=== PATIENT | female | born 1955 | race Caucasian/White ===

== ENCOUNTER → 2024-07-18 08:04 | Outpatient (REF) | payer MEDICARE, SELFPAY | LOC: HWWDC 08:04 | PROVIDERS: ATTENDING PHYSICIAN Physician Assistant Medical | DX: Z12.31 Encounter for screening mammogram for malignant neoplasm of breast (principal) | CPT/HCPCS: 77063; 77067 ==

== ENCOUNTER 2024-08-30 07:53 | Inpatient (IN) | payer MEDICARE, SELFPAY ==
[2024-08-16 14:08] VITALS: BMI 29.6
[2024-08-16 14:21] LABS: Hematocrit 43.4 % (37.0-47.0); Hemoglobin 14.3 g/dL (12.0-16.0); Mean Corp Hgb Conc. 32.9 g/dL (33.0-37.0); Mean Corpuscular Hgb 31.3 pg (27.0-31.0); Mean Platelet Volume 10.5 fL (7.4-10.4); Platelet Count 203 10^3/uL (130-400); Red Blood Cell Count 4.57 10^6/uL (4.20-5.40); Red Cell Dist. Width 13.3 % (11.5-14.5); White Blood Cell Count 6.3 10^3/uL (4.8-10.8)
[2024-08-16 14:53] LABS: Glycohemoglobin (HgbA1c) 5.3 % (4.0-5.6)
[2024-08-16 15:26] LABS: ALT (SGPT) 24 U/L (0-35); AST (SGOT) 33 U/L (14-36); Albumin 4.4 g/dl (3.5-5.0); Alkaline Phosphatase 83 U/L (38-126); Blood Urea Nitrogen 20 mg/dl (7-17); Calcium 9.9 mg/dl (8.4-10.2); Carbon Dioxide 29 mmol/L (22-30); Chloride 103 mmol/L (98-107); Estimated Creatinine Clearance 57 ml/min; Glucose 72 mg/dl (70-99); Potassium 4.3 mmol/L (3.5-5.1); Sodium 138 mmol/L (135-145); Total Bilirubin 0.7 mg/dl (0.2-1.3); eGFR > 60.00
[2024-08-29 09:13] VITALS: BMI 29.6
[2024-08-30] VITALS (15 sets, daily range): BP systolic 104–152; BP diastolic 56–83; PULSE 73–75; O2SAT 98
[2024-08-30] MEDS: TYLENOL 650 MG PO ×3 (08:38→19:19)
[2024-08-30] MEDS: CELEBREX 200 MG PO (08:38)
[2024-08-30] MEDS: NORMOSOL-R/PLASMALYTE-A 1000 IV (08:45)
[2024-08-30] MEDS: TYLENOL PO (12:00)
[2024-08-30] MEDS: DILAUDID 0.25 MG IV (12:18)
--- NOTE | 2024-08-30 14:52 | W.DS.TRANS ---
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
-
Discharge Instructions:
Sleep Apnea Risk Low
Discharge Diagnosis/Procedures R MAE Revision 08/30/24
Diet As tolerated
Activity With Walker
Driving Restrictions No driving
Bathing Restrictions OK to Shower
Other Services PT
Instructions:
Stand-Alone Forms: Total Hip/Knee Replacement D/C
Changes to Home Medications: Yes
Discharge Medications:
DC Medications w/original date entered in [facility]
amitriptyline 10 mg tablet 10 mg PO HS 09/23/15
estradiol 2 mg (7.5 mcg/24 hour) vaginal ring (Estring) 1 vag.ring VG .[id number] 09/23/15
multivitamin with folic acid 400 mcg tablet (Tab-A-Kris) 1 tab PO DAILY 09/23/15
Diclofenac 50 mg PO BID 05/20/16
lisinopril 2.5 mg tablet 5 mg PO HS 05/20/16
ascorbic acid (vitamin C) 500 mg tablet (Vitamin C) 1,000 mg (2 x 500 mg) PO BID ##0 06/03/16
A & D Ointment 1 dose topical PRN PRN dry skin 08/14/24
Defend 1 dose PO DAILY UTI prevention 08/14/24
Probiotic 1 dose PO DAILY 08/14/24
Uqora 1 dose intra-urethral .EVERY 3 DAY UTI prevention 08/14/24
atorvastatin 20 mg tablet 20 mg PO HS 08/14/24
clobetasol 0.05 % topical cream 1 applic topical BID PRN Lichen sclerosis 08/14/24
fluticasone propionate 50 mcg/actuation nasal spray,suspension 1 spray intranasal PRN PRN allergies 08/14/24
food supplemt, lactose-reduced 1 ea PO DAILY UTI prevention 08/14/24
loratadine 10 mg tablet 10 mg PO DAILY PRN allergies 08/14/24
omega-3 fatty acids 1,000 mg capsule 1,000 mg PO DAILY 08/14/24
psyllium 1 dose PO PRN PRN digestion 08/14/24
mupirocin 2 % topical ointment 1 applic intranasal BID #1 tube 08/16/24
polyethylene glycol 3350 17 gram oral powder packet (Miralax) 17 g PO DAILY 08/16/24
Saccharomyces boulardii 250 mg capsule (Florastor) 250 mg PO BID #1 cap 08/30/24
acetaminophen 325 mg tablet (Tylenol) 650 mg (2 x 325 mg) PO QID #1 tab 08/30/24
aspirin 325 mg tablet 325 mg PO DAILY blood clot prevention #1 tab 08/30/24
cefadroxil 500 mg capsule 500 mg PO BID infection prevention #14 caps 08/30/24
dexamethasone 4 mg tablet 4 mg PO BID inflammation #6 tabs 08/30/24
docusate sodium 100 mg capsule (Colace) 100 mg PO BID stool softner #1 cap 08/30/24
gabapentin 300 mg capsule 300 mg PO HS sleep/pain #10 caps 08/30/24
magnesium hydroxide 400 mg/5 mL oral suspension (Milk of Magnesia) 30 ml PO HS PRN Constipation #1 mL 08/30/24
ondansetron 4 mg disintegrating tablet 4 mg PO Q6H PRN n/v #20 tabs 08/30/24
oxycodone 5 mg tablet 5 mg PO Q6H PRN 1 tab moderate pain, 2 tabs severe pain #30 tabs 08/30/24
sennosides 8.6 mg tablet (Senokot) 17.2 mg (2 x 8.6 mg) PO BID laxative #2 tabs 08/30/24
Home Medication Changes
Saccharomyces boulardii 250 mg capsule (Florastor) 250 mg PO BID #1 cap 08/30/24
acetaminophen 325 mg tablet (Tylenol) 650 mg (2 x 325 mg) PO QID #1 tab 08/30/24
aspirin 325 mg tablet 325 mg PO DAILY blood clot prevention #1 tab 08/30/24
cefadroxil 500 mg capsule 500 mg PO BID infection prevention #14 caps 08/30/24
dexamethasone 4 mg tablet 4 mg PO BID inflammation #6 tabs 08/30/24
docusate sodium 100 mg capsule (Colace) 100 mg PO BID stool softner #1 cap 08/30/24
gabapentin 300 mg capsule 300 mg PO HS sleep/pain #10 caps 08/30/24
magnesium hydroxide 400 mg/5 mL oral suspension (Milk of Magnesia) 30 ml PO HS PRN Constipation #1 mL 08/30/24
ondansetron 4 mg disintegrating tablet 4 mg PO Q6H PRN n/v #20 tabs 08/30/24
oxycodone 5 mg tablet 5 mg PO Q6H PRN 1 tab moderate pain, 2 tabs severe pain #30 tabs 08/30/24
sennosides 8.6 mg tablet (Senokot) 17.2 mg (2 x 8.6 mg) PO BID laxative #2 tabs 08/30/24
Pending Results: No
[2024-08-30] MEDS: ROXICODONE 5 MG PO (15:23)
[2024-08-30] MEDS: ANCEF 5 IV (16:50)
[2024-08-30] MEDS: ASPIRIN 325 MG PO (16:54)
--- NOTE | 2024-08-30 17:00 | PTCARENOTE ---
16:23 patient received from PACU, AAOX3, R hip revision. No reports of discomfort at this time. Patient ambulated to rest room with staff -voided.
[2024-08-30] MEDS: SENOKOT 17.2 MG PO (19:19)
[2024-08-30] MEDS: COLACE 100 MG PO (19:19)
[2024-08-30] MEDS: ELAVIL 10 MG PO (21:03)
[2024-08-30] MEDS: LIPITOR 20 MG PO (21:04)
[2024-08-30 21:11] LABS: Glucose - Point of Care 155 mg/dl (70-99)
[2024-08-30] MEDS: BACTROBAN 2% OINTMENT 1 APPLIC NASAL (21:56)
[2024-08-31] MEDS: ANCEF 5 IV (00:51)
[2024-08-31] MEDS: TYLENOL 650 MG PO ×3 (00:51→07:51)
[2024-08-31 03:27] VITALS: BP 140/69
[2024-08-31 07:03] VITALS: BP 124/58
[2024-08-31] MEDS: SENOKOT 17.2 MG PO (07:51)
[2024-08-31] MEDS: BACTROBAN 2% OINTMENT 1 APPLIC NASAL (07:51)
[2024-08-31] MEDS: ASPIRIN 325 MG PO (07:51)
[2024-08-31] MEDS: COLACE 100 MG PO (07:52)
[2024-08-31 08:30] LABS: Glucose - Point of Care 108 mg/dl (70-99)
[2024-08-31 09:04] VITALS: BP 127/66; PULSE 68; O2SAT 99
--- NOTE | 2024-08-31 09:17 | W.PN.ORTHO ---
Today's Communication / Plan
-
d/c
Assessment
.
Distal Motor Intact: Yes
Dressing:
Clean, dry and intact.
Assessment:
Mechanical failure
Plan
.
Surgery / Date: R MAE Revision 08/30/24
DVT Prophylaxis: Aspirin
Activity:
Out of bed.
PT/OT
Discharge Plan: Home w/ Outpatient PT
Subjective
.
.:
Patient resting comfortably.
Vital Signs and Labs
.
Vital Signs and Labs:
Lab Results
08/16/24 13:07
08/16/24 13:07
Temp Pulse Resp BP Pulse Ox
97.6 F 74 16 124/58 97
08/31/24 07:03 08/31/24 07:03 08/31/24 07:03 08/31/24 07:03 08/31/24 07:03
Non-invasive Hgb result: 11.3
Physical Exam
-
HEENT: No pallor, cyanosis, or jaundice. Throat clear.
NECK: Supple. No JVD.
RESPIRATORY: Lungs clear to auscultation.
CVS: S1, S2 normal. RRR.� No murmur, rub or gallop.
ABDOMEN: Soft, non-tender. No distension. BS+/normal.
EXTREMITIES: strength equal, no calf pain with palpation
INDOOR LANDSCAPE ARCHITECT: AOx3. No focal deficits. personal development mentor grossly intact
--- NOTE | 2024-08-31 09:29 | CM ---
CM met with patient in room. Patient confirmed demographics. Patient lives independently with who will provide support at home. Patient does not have history of VN, SNF. Patient has a walker, commode, grab bar, and raised toilet seat.
Patient confirmed that she has an appointment tomorrow 09/01 with Outpatient PT.
Patient is active with her PCP Dr. Schreiber. Patient has medication coverage and uses [facility] for medication services.
Patient is eager to be discharge and is looking forward to going home.
PLAN: Home with outpatient PT.
[2024-08-31 09:56] VITALS: BP 131/66; PULSE 67; O2SAT 100
[2024-08-31 11:02] VITALS: BP 123/68
== END 2024-08-31 12:02 | disposition home or self-care (01) | DRG 468 ==
LOC: 2 SOUTH 07:53
PROVIDERS: ADMITTING PHYSICIAN Orthopaedic Surgery; FAMILY PHYSICIAN Physician Assistant Medical
PROC: 0SP90JZ Removal of Synthetic Substitute from Right Hip Joint, Open Approach (ICD-10-PCS; 2024-08-30)
PROC: 0SR902A Replacement of Right Hip Joint with Metal on Polyethylene Synthetic Substitute, Uncemented, Open Approach (ICD-10-PCS; 2024-08-30)
DX: T84.030A Mechanical loosening of internal right hip prosthetic joint, initial encounter (principal); Y79.2 Prosthetic and other implants, materials and accessory orthopedic devices associated with adverse incidents; Z87.440 Personal history of urinary (tract) infections; Z96.642 Presence of left artificial hip joint
CPT/HCPCS: 36415; 73502; 80053; 82962; 83036; 85027; 86850; 86900; 86901; 87070; 93005; 97116; 97162; 97166; 97530; 97535; C1713; C1776

== ENCOUNTER 2025-04-20 06:14 | Day surgery (SDC) | payer MEDICARE, SELFPAY | END 2025-04-20 14:14 | disposition home or self-care (01) | LOC: GI 06:14 | PROVIDERS: ATTENDING PHYSICIAN Specialist | DX: Z12.11 Encounter for screening for malignant neoplasm of colon (principal); Z86.0101 Personal history of adenomatous and serrated colon polyps | CPT/HCPCS: G0105 ==